=== PATIENT | female | born 1945 | race Caucasian/White ===

== ENCOUNTER → 2021-03-28 | Outpatient (CLI) | payer MEDICARE, OTHER ==
[~2021-03-28] MED LIST: ACETAMINOPHEN325 M1 PO; ADULT LOW DOSE81 MG PO; ANUSOL1 EACH; ARIXTRA; ASPIRIN325 PO; BIOTIN2500 MCG PO; CALCIUM 600 +1 EAC1 PO; COLACE100 MG; COLACE100 MG PO; FLAGYL500 MG PO; IRON325; LIPITOR20 MG PO; LISINOPRIL20 MG PO; LOVAZA1000 MG PO; MIRALAX PO; MIRALAX255 GM; MULTIVITAMINS1 EAC7 PO; NEXIUM 40 MG CA40 M1 PO; NORCO 5-325 TA1 EACH; OXYCODONE HCL5 M1 PO; PERCOCET 5-3251 EACH PO; XARELTO10 M1
== END ==
LOC: M.RAD 03-19 14:30
PROVIDERS: ATTEND Family Medicine
DX: M81.0 Age-related osteoporosis without current pathological fracture (principal)